=== PATIENT | male | born 1980 | race Caucasian/White ===

== ENCOUNTER 2021-09-29 10:16 | Emergency (ER) | payer OTHER ==
[2021-09-29 14:08] LABS: BASOPHIL 0.3 % (0-2); EOSINOPHIL 0 % (0-5); HCT 42.2 % (42.0-52.0); HGB 14.1 g/dl (13.2-18.0); LYMPHOCYTE 38.2 % (15-48); MCH 29.6 pg (25.0-31.0); MCHC 33.4 g/dL (32.0-36.0); MCV 88.7 fL (78.0-100.0); MONOCYTE 12.5 % (0-12); MPV 10.1 fL (6.0-9.5); NEUTROPHIL 48.7 % (41-80); NRBC 0; PLT 105 K/uL (150-400); RBC 4.76 M/uL (4.70-6.00); RDW 12.5 % (11.5-14.0); WBC 3.3 K/uL (4.0-10.5)
[2021-09-29 14:30] LABS: INR 1.01 (0.9-1.2); PROTHROMBIN TIME 12.7 SECONDS (11.8-13.4)
[2021-09-29 14:31] LABS: PTT 33.2 SECONDS (24.4-34.7)
[2021-09-29 14:32] LABS: D-DIMER < 0.27 ug/mLFEU (0.00-0.41)
[2021-09-29 14:47] LABS: ALBUMIN 3.9 g/dL (3.4-5.0); ALKALINE PHOSHATASE 53 U/L (46-116); ALT 27 U/L (16-63); AST 24 U/L (15-37); BILIRUBIN - TOTAL 0.3 mg/dL (0.2-1.0); BUN 8 mg/dL (7-18); BUN/CREAT RATIO (CALC) 8.8 RATIO; C-REACTIVE PROTEIN <0.20 mg/dL (<=0.90); CHLORIDE 97 mmol/L (98-107); CO2 (BICARBONATE) 30 mmol/L (21-32); CREATININE 0.91 mg/dL (0.67-1.17); GLOBULIN (CALCULATION) 3.4 g/dL; GLUCOSE 92 mg/dL (74-106); LDH 139 U/L (85-227); MAGNESIUM 2.3 mg/dL (1.8-2.4); POTASSIUM 3.9 mmol/L (3.5-5.1); TOTAL PROTEIN 7.3 g/dL (6.4-8.2)
[2021-09-29] MEDS ORDERED: ONDANSETRON ODT4 MG PO (15:51)
[2021-09-29] MEDS ORDERED: PREDNISONE 20MG20 MG PO (15:51)
[2021-09-29] MEDS ORDERED: VENTOLIN HFA18 GM INH (15:51)
[2021-09-29] MEDS ORDERED: NAPROXEN500 MG PO (15:51)
== END 2021-09-29 16:10 | disposition home or self-care (01) ==
LOC: FER 10:16
PROVIDERS: Emergency Medicine
DX: U07.1 COVID-19 (principal); H49.22 Sixth [abducent] nerve palsy, left eye
CPT/HCPCS: 36415; 70450; 71250; 80053; 82728; 83615; 83735; 83880; 84145; 84484; 85025; 85379; 85610; 85730; 86140; 93005; J7030